=== PATIENT | female | born 1980 | race Caucasian/White ===

== ENCOUNTER 2018-11-03 21:21 | Outpatient (CLI) | payer OTHER ==
[~2018-11-03] VITALS: Ht 165.1 cm; Wt 87.1 kg
[2018-11-03 21:45] VITALS: BP 124/72; PULSE 77; RESP 17; Ht 165.1 cm; Wt 87.1 kg
[2018-11-03] MEDS ORDERED: CALC0.5C10 PO (21:48)
[2018-11-03] MEDS ORDERED: PREN1TAB13 PO (21:48)
[2018-11-03] MEDS ORDERED: LEVO175T2 PO (21:48)
--- NOTE | 2018-11-04 01:10 | PN ---
Triage Information Date/Time 11/04/1804/15/56 Reason for visit: DFM (since 0800 on 11/03/18) Weeks of Gestation 31weeks /Para with x1 still at 32w x3 c/s Diabetes: none Hypertention: none Additional information s/p thyroidectomy for cancer on synthroid 175mcg calcitriol 0.5mcg Objective Vital Signs Date Temp Pulse Resp B/P (MAP) Pulse Ox O2 O2 Flow FiO2 Time Delivery Rate 11/03/18 98.3 77 17 124/72 Room Air 21:45 (89) Heart Rate: 130's Heart Rate Comments CAT I tracing Results/Medications Results 24 hrs Laboratory Tests Test 11/03/18 21:40 Urine Color JUSTEN Urine Clarity CLOUDY A Urine pH 5.0 Urine Specific [place] 1.026 Urine Ketones NEGATIVE Urine Nitrite NEGATIVE Urine Bilirubin NEGATIVE Urine Urobilinogen 2+ H Urine Leukocyte Esterase TRACE A Urine Microscopic RBC 133 H Urine Microscopic WBC 8 H Urine Squamous Epithelial Cells FEW Urine Calcium Oxalate Crystals FEW A Urine Mucus FEW A Urine Hemoglobin 2+ H Urine Glucose NEGATIVE Urine Total Protein NEGATIVE Imaging Results BPP 8/8 FILOMENA 7.7 CVL 3.9 Disposition: Discharge Assessment/Plan A IUP 31weeks DFM borderline oligohydramnios r/o UTI P dischsrge home with instruction with increase intake of fluid (water) f/u with her OB by wednesday and check the urinc culture result and FILOMENA GENNARO MALIK MD November 04, 2018 01:07
--- NOTE | 2018-11-04 01:49 | TRIAGE ---
OB Triage Datetime Report Generated by CPN: 11/04/2018 01:49 Datetime: 11/03/2018 23:24 Labor Evaluation Frequency: X0 Monitor Mode: External Duration (sec)2399: X0 Pattern: Normal: <= 5 Contractions in 10 Minutes Resting Tone [place]: Relaxed Heart Rate FHR Baseline Rate: 145 Monitor Mode: External US Variability: Moderate 6-25 bpm Accelerations: 15X15 Decelerations: None Category: Category I Datetime: 11/03/2018 22:25 Stage of : OB Triage Labor Evaluation Frequency: X0 Monitor Mode: External Pattern: Normal: <= 5 Contractions in 10 Minutes Resting Tone [place]: Relaxed Heart Rate FHR Baseline Rate: 135 Monitor Mode: External US Variability: Moderate 6-25 bpm Accelerations: 15X15 Decelerations: None Category: Category I Datetime: 11/03/2018 22:15 Monitor Mode: External US Datetime: 11/03/2018 21:52 Stage of : OB Triage Maternal Assessment Level of Consciousness: Fully Conscious DTR's/Clonus: DTRs 2+; No Clonus Headache: Denies Blurred Vision: No Respiratory Effort: Unlabored; Regular Rhythm; Equal Expansion Breath Sounds, Left: Clear and Equal Breath Sounds, Right: Clear and Equal Nausea/Vomiting: Denies RUQ Epigastric Pain: Denies Lower Extremities Edema: None Degree: None Upper Extremities Edema: None Degree: None Facial Edema: None Temperature Route: Oral Fall Risk Assessment History of Falling: (0) No Secondary Diagnosis: (0) No Ambulatory Aid: (0) Bedrest/Nurse Assist IV Therapy: (0) No Gait: (0) Normal/Bedrest/Immobile Mental Status: (0) Oriented to Own Ability Fall Score: 0 Fall Risk Score Definition: No Risk: No action required Labor Evaluation Frequency: X0 Monitor Mode: External Duration (sec)2399: X0 Pattern: Normal: <= 5 Contractions in 10 Minutes Resting Tone [place]: Relaxed Heart Rate FHR Baseline Rate: 135 Monitor Mode: External US Variability: Moderate 6-25 bpm Accelerations: 15X15 Decelerations: None Category: Category I Pain Assessment Pain Scale: 0 Pain Presence: None/Denies Pain Type: N/A Datetime: 11/03/2018 21:50 Time of Arrival: 11/03/2018 21:15 EGA: 31.0 Arrived By: Ambulatory Chief Complaint: DECREASED MOVEMENT SINCE 8AM Movement: Decreased Contractions: Denies/Absent Contractions: X0 Rupture of Membranes: Denies Vaginal Bleeding: None Vaginal Discharge: Denies Recent Sexual Intercouse: Denies Abdominal Trauma: Not Applicable Patient Complaints: Other Additional Patient Complaints: LEFT UPPER ABDOMEN PAIN ON 11/02/2018 Time Provider Notified: 11/03/2018 21:57 Provider Notified: DR. MALIK Initial Plan: EFM, CALL OB Datetime: 11/03/2018 21:28 Monitor Mode: External Contraction Comments: APPLIED Monitor Mode: External US Comments: APPLIED
== END 2018-11-04 00:36 | disposition home or self-care (01) ==
LOC: OBT 21:21 → L-D 21:22 → OBT 11-04 00:36
PROVIDERS: ATTEND Obstetrics & Gynecology
DX: O26.893 Other specified pregnancy related conditions, third trimester (principal); O41.03X0 Oligohydramnios, third trimester, not applicable or unspecified; O09.523 Supervision of elderly multigravida, third trimester; Z3A.31 31 weeks gestation of pregnancy; E89.0 Postprocedural hypothyroidism
CPT/HCPCS: 76817; 76818; 81001; 87086; Z7500; G0463